=== PATIENT | male | born 1965 | race Caucasian/White ===

== ENCOUNTER → 2020-12-24 | Outpatient (REF) ==
--- NOTE | 2020-12-24 12:45 | REP ---
INDICATION: DDD. TECHNIQUE: Limited AP and lateral view. FINDINGS: There is moderate posterior disc space narrowing L3-4 through L5-S1 inclusive. There is minimal anterior lipping. Vertebral body height and alignment is within normal limits. Degenerative facet joint change are suspected bilaterally L3-4 through L5-S1. IMPRESSION: As above.. <Electronically signed by Efraín Rodriguez > 12/24/20 [id number]
== END ==
LOC: M PLAIMG 10:34
PROVIDERS: ATTEND Internal Medicine
DX: M51.36 Other intervertebral disc degeneration, lumbar region (principal)

== ENCOUNTER → 2025-05-09 | Outpatient (REF) | LOC: M PLAIMG 13:45 | PROVIDERS: ATTEND Internal Medicine | DX: R52 Pain, unspecified (principal); M51.360 Other intervertebral disc degeneration, lumbar region with discogenic back pain only ==